=== PATIENT | male | born 1955 | race Two or more races ===

== ENCOUNTER 2019-05-26 09:54 | Emergency (ER) | payer OTHER ==
[~2019-05-26] VITALS: Ht 167.6 cm; Wt 90.7 kg
[2019-05-26] MEDS ORDERED: NKM (10:03)
--- NOTE | 2019-05-26 10:06 | NUR ---
ED Nurse Note: PT WALKED IN TO ER TODAY FROM HOME. AOX4. PT STATES HE HAS BEEN UNABLE TO URINATE X LAST NIGHT. BLADDER PALPABLE. PT IN OBVIOUS DISCOMFORT AND DIAPHORETIC. DAVILA CATHETER PLACED USING STERILE TECHNIQUE BY NNEKA KHAN. PT TOLERATED WELL. INITIAL OUTPUT OF 600ML CLEAR YELLOW URINE NOTED.
--- NOTE | 2019-05-26 10:15 | NUR ---
ED Nurse Note: PT RESTING PEACEFULLY IN BED IN NAD. PT DENIES DISCOMFORT/PAIN AND STATES, "I'M FEELING MUCH BETTER NOW." DAVILA CATHETER STILL IN PLACE. ADDITIONAL OUTPUT OF 40ML CLEAR YELLOW URINE NOTED.
[2019-05-26 10:20] VITALS: BP 164/93
[2019-05-26 10:21] LABS: APPEARANCE,URINE CLEAR; BASOPHILS % (AUTO) 1.3 % (0.0-2.0); BILIRUBIN, URINE NEGATIVE (NEGATIVE); COLOR,URINE PALE YELLOW; EOSINOPHILS % (AUTO) 1.2 % (0.0-3.0); GLUCOSE, URINE (UA) NEGATIVE (NEGATIVE); HEMATOCRIT 46.9 % (42.0-52.0); HEMOGLOBIN 15.2 G/DL (14.2-18.0); KETONES,URINE NEGATIVE (NEGATIVE); LEUKOCYTE ESTERASE ,URINE NEGATIVE (NEGATIVE); LYMPHOCYTES % (AUTO) 28.3 % (20.0-45.0); MEAN CORPUSCULAR VOLUME 84 FL (80-99); MONOCYTES % (AUTO) 7.6 % (1.0-10.0); NEUTROPHILS % (AUTO) 61.6 % (45.0-75.0); NITRITE,URINE NEGATIVE (NEGATIVE); PH,URINE 6.5 (4.5-8.0); PLATELET COUNT 263 K/UL (150-450); PROTEIN,URINE NEGATIVE (NEGATIVE); RED CELL DISTRIBUTION WIDTH 12.6 % (11.6-14.8); UROBILINOGEN,URINE NORMAL MG/DL (0.0-1.0); WHITE BLOOD COUNT 7.5 K/UL (4.8-10.8)
[2019-05-26 10:31] LABS: ANION GAP 12 mmol/L (5-15); BLOOD UREA NITROGEN 10 mg/dL (7-18); CALCIUM 8.7 MG/DL (8.5-10.1); CARBON DIOXIDE 26 MMOL/L (21-32); CHLORIDE 109 MMOL/L (98-107); CREATININE 0.9 MG/DL (0.55-1.30); POTASSIUM 3.6 MMOL/L (3.5-5.1); SODIUM 147 MMOL/L (136-145)
[2019-05-26 10:35] LABS: ALANINE AMINOTRANSFERASE 34 U/L (12-78); ALBUMIN 3.7 G/DL (3.4-5.0); ALBUMIN/GLOBULIN RATIO 0.9 (1.0-2.7); ALKALINE PHOSPHATASE 120 U/L (46-116); ASPARTATE AMINO TRANSFERASE 21 U/L (15-37); BILIRUBIN,TOTAL 0.5 MG/DL (0.2-1.0)
--- NOTE | 2019-05-26 10:39 | Emergency Room Report ---
History of Present Illness General Chief Complaint: Male Urogenital Problems Source: Patient Present Illness HPI Patient presents with complaints of urinary retention since last night Patient feels that he needs to urinate however was unable to do so I was having increased pressure discomfort to the suprapubic area Denies any fevers or chills Denies any abdominal pain at this time denies any chest pain or shortness of breath denies any recent fevers or travel denies any trauma denies any incidents like this previously Allergies: Coded Allergies: No Known Allergies (Unverified , 05/26/19) Patient History Past Medical History: see triage record Reviewed Nursing Documentation: PMH: Agreed; PSxH: Agreed Nursing Documentation-PMH Past Medical History: No Stated History Review of Systems All Other Systems: negative except mentioned in HPI Physical Exam Vital Signs Date Time Temp Pulse Resp B/P (MAP) Pulse Ox O2 Delivery O2 Flow Rate FiO2 05/26/19 10:03 97.9 80 19 206/104 (138) 96 Room Air Sp02 EP Interpretation: reviewed, normal General Appearance: well appearing, no apparent distress Head: normocephalic, atraumatic Eyes: bilateral eye PERRL, bilateral eye EOMI ENT: hearing grossly normal, normal pharynx, TMs + canals normal, uvula midline Neck: full range of motion, supple, no meningismus, no bony tend Respiratory: lungs clear, normal breath sounds, no rhonchi, no respiratory distress, no retraction, no accessory muscle use Cardiovascular #1: normal peripheral pulses, regular rate, rhythm, no edema, no gallop, no JVD, no murmur Gastrointestinal: normal bowel sounds, non tender, soft, no mass, no organomegaly, non-distended, no guarding, no hernia, no pulsatile mass, no rebound Genitourinary: no CVA tenderness Musculoskeletal: normal inspection Neurologic: oriented x3, responsive, mortgage loan interviewer III-XII nml as tested, motor strength/ tone normal, sensory intact Psychiatric: mood/affect normal Skin: no rash Lymphatic: normal inspection, no adenopathy Medical Decision Making Diagnostic Impression: Primary Impression: Urinary retention ER Course multiple differentials and consideration including but not limited to renal failure, obstructive pathology, renal stone Patient's blood work is at baseline levels CT imaging does reveal what appears to be likely enlarged prostate Patient has had this problem in the past as well at this time we will leave the Erickson catheter in place with the patient on Flomax and the patient requires close outpatient urology follow-up Labs Test 05/26/19 10:10 White Blood Count 7.5 K/UL (4.8-10.8) Red Blood Count 5.60 M/UL (4.70-6.10) Hemoglobin 15.2 G/DL (14.2-18.0) Hematocrit 46.9 % (42.0-52.0) Mean Corpuscular Volume 84 FL (80-99) Mean Corpuscular Hemoglobin 27.2 PG (27.0-31.0) Mean Corpuscular Hemoglobin Concent 32.5 G/DL (32.0-36.0) Red Cell Distribution Width 12.6 % (11.6-14.8) Platelet Count 263 K/UL (150-450) Mean Platelet Volume 7.0 FL (6.5-10.1) Neutrophils (%) (Auto) 61.6 % (45.0-75.0) Lymphocytes (%) (Auto) 28.3 % (20.0-45.0) Monocytes (%) (Auto) 7.6 % (1.0-10.0) Eosinophils (%) (Auto) 1.2 % (0.0-3.0) Basophils (%) (Auto) 1.3 % (0.0-2.0) Urine Color Pale yellow Urine Appearance Clear Urine pH 6.5 (4.5-8.0) Urine Specific [place] 1.015 (1.005-1.035) Urine Protein Negative (NEGATIVE) Urine Glucose (UA) Negative (NEGATIVE) Urine Ketones Negative (NEGATIVE) Urine Blood 3+ (NEGATIVE) Urine Nitrite Negative (NEGATIVE) Urine Bilirubin Negative (NEGATIVE) Urine Urobilinogen Normal MG/DL (0.0-1.0) Urine Leukocyte Esterase Negative (NEGATIVE) Urine RBC 5-10 /HPF (0 - 0) Urine WBC 0 /HPF (0 - 0) Urine Squamous Epithelial Cells Occasional /LPF Urine Bacteria Occasional /HPF (NONE) Sodium Level 147 MMOL/L (136-145) Potassium Level 3.6 MMOL/L (3.5-5.1) Chloride Level 109 MMOL/L (98-107) Carbon Dioxide Level 26 MMOL/L (21-32) Anion Gap 12 mmol/L (5-15) Blood Urea Nitrogen 10 mg/dL (7-18) Creatinine 0.9 MG/DL (0.55-1.30) Estimat Glomerular Filtration Rate > 60 mL/min (>60) Glucose Level 194 MG/DL (74-106) Calcium Level 8.7 MG/DL (8.5-10.1) Total Bilirubin 0.5 MG/DL (0.2-1.0) Aspartate Amino Transf (AST/SGOT) 21 U/L (15-37) Alanine Aminotransferase (ALT/SGPT) 34 U/L (12-78) Alkaline Phosphatase 120 U/L (46-116) Total Protein 7.9 G/DL (6.4-8.2) Albumin 3.7 G/DL (3.4-5.0) Globulin 4.2 g/dL Albumin/Globulin Ratio 0.9 (1.0-2.7) CT/MRI/US Diagnostic Results CT/MRI/US Diagnostic Results : Impression CT abdomen pelvisIMPRESSION: Chronic cystitis probably on the basis of bladder outlet impediment due to prostate hypertrophy which is severe. Erickson catheter noted in good position. Diverticulosis of the colon. No definite diverticulitis. 3.5 x 2.1 cm hypodensity in setting of prior cholecystectomy may be a remnant of the cystic duct or persistent postoperative fluid collection such as an old hematoma or seroma/biloma. Last Vital Signs Date Time Temp Pulse Resp B/P (MAP) Pulse Ox O2 Delivery O2 Flow Rate FiO2 05/26/19 10:20 67 16 164/93 99 Room Air 05/26/19 10:03 97.9 Status: improved Disposition: HOME, SELF-CARE Condition: Improved Scripts Tamsulosin HCl (Flomax) 0.4 Mg Cap.er.24h 0.4 MG ORAL DAILY for 5 Days, CAP Prov: Waleska Prajapati DO 05/26/19 Additional Instructions: patient understands all discharge instructions. Patient will followup with primary physician in the next 2-3 days. Return to the ER with any worsening symptoms prior to that Waleska Prajapati DO May 26, 2019 10:39
[2019-05-26] MEDS ORDERED: Tamsulosin 0.4mg cap ORAL ONE ×2 (11:55→21:00)
--- NOTE | 2019-05-26 12:22 | Diagnostic Imaging Report ---
Indication: Abdominal pain Technique: Continuous helical transaxial imaging of the abdomen and pelvis was obtained from the lung bases to the pubic symphysis. No intravenous contrast was administered. Coronal 2-D reformats were also obtained. Automatic Exposure Control was utilized. Total Dose length Product (DLP): 828.[address] Dose Index Volume (CTDIvol): 15.7 mGy Comparison: none Findings: There is a small ovoid hypodensity measuring 3.5 x 2.1 cm adjacent to cholecystectomy clips. This could represent a remnant of the cystic duct or possibly postoperative fluid collection or hematoma. This appears well-circumscribed. There are no surrounding inflammatory changes. No nephrolithiasis or hydronephrosis identified. Appendix is normal. There are diverticula in the colon. There is the suggestion of thickening of the wall the urinary bladder which is completely nondistended. Erickson catheter in good position. There is suggestion of the mild perivesical soft tissue stranding and inflammation. The prostate is markedly enlarged and measures approximately 7 cm. Minimal calcification of aorta noted. IMPRESSION: Chronic cystitis probably on the basis of bladder outlet impediment due to prostate hypertrophy which is severe. Erickson catheter noted in good position. Diverticulosis of the colon. No definite diverticulitis. 3.5 x 2.1 cm hypodensity in setting of prior cholecystectomy may be a remnant of the cystic duct or persistent postoperative fluid collection such as an old hematoma or seroma/biloma. The CT scanner at [facility] is accredited by the [employer] and the scans are performed using dose optimization techniques as appropriate to a performed exam including Automatic Exposure control.
[2019-05-26] MEDS ORDERED: FLOMAX0.4 MG ORAL (12:53)
--- NOTE | 2019-05-26 14:05 | NUR ---
ED Nurse Note: PT LAYING PEACEFULLY IN BED IN NAD. AOX4. PRESCRIPTION AND DISCHARGE PAPERWORK EXPLAINED TO PT. PT VERBALIZES UNDERSTANDING AND ALL QUESTIONS ANSWERED. PRESCRIPTION AND DISCHARGE PAPERWORK GIVEN TO PT, IV AND ID WRISTBAND REMOVED. PT WALKED OUT OF ER WITH STEADY GAIT AND ALL BELONGINGS.
[2019-05-26 14:06] VITALS: BP 142/86
== END 2019-05-26 14:07 | disposition home or self-care (01) ==
LOC: EMR 10:40
DX: R33.9 Retention of urine, unspecified (principal); R10.30 Lower abdominal pain, unspecified
CPT/HCPCS: 36415; 74176; 80053; 81003; 85025; 99284